=== PATIENT | male | born 1960 | race Asian ===

== ENCOUNTER 2016-12-13 07:04 | Day surgery (SDC) | payer OTHER ==
[2016-12-01 12:05] VITALS: BMI 25.2
[2016-12-13] MEDS ORDERED: BUPIVACAINE HCL/PF 0.5% (5MG/ML) 10 ML VIAL ONE ×2 (07:53→09:59)
[2016-12-13] MEDS ORDERED: BUPIVACAINE HCL 0.25% 125 MG/50 ML VIAL ONE (07:53)
[2016-12-13] MEDS ORDERED: LIDOCAINE HCL 1%, 10 MG/ML (20ML VIAL) ONE ×2 (07:53→09:59)
[2016-12-13] MEDS ORDERED: MIDAZOLAM HCL 2 MG/2 ML SINGLE DOSE VIAL ONE (08:41)
[2016-12-13] MEDS ORDERED: PROPOFOL 20 ML ONE ×2 (08:41→10:02)
[2016-12-13] MEDS ORDERED: ceFAZolin SODIUM 1 GM VIAL ONE (09:48)
[2016-12-13] MEDS ORDERED: ONDANSETRON 4 MG/2 ML VIAL ONE ×2 (09:53)
[2016-12-13] MEDS ORDERED: DEXAMETHASONE SOD PHOSPHATE 4 MG/1 ML VIAL ONE ×2 (09:53)
[2016-12-13] MEDS ORDERED: BUPIVACAINE HCL 0.5% 250 MG/50 ML VIAL NR ONE (09:55)
[2016-12-13] MEDS ORDERED: LIDOCAINE HCL 1% PRESERVATIVE FREE - 30ML VIAL IJ ONE (09:55)
[2016-12-13] MEDS ORDERED: KETOROLAC TROMETHAMINE 30 MG/1 ML VIAL ONE (10:43)
[2016-12-13] MEDS ORDERED: oxyCODONE HCL 5 MG TABLET ONE (11:23)
[2016-12-13 11:31] VITALS: PULSE 68
[2016-12-13 12:17] VITALS: BP 136/87; TEMP 97.8
--- NOTE | 2016-12-14 10:25 | OP ---
DATE OF OPERATION: 12/13/2016 PREOPERATIVE DIAGNOSIS: Bilateral inguinal hernia. POSTOPERATIVE DIAGNOSIS: Bilateral inguinal hernia. PROCEDURE: Bilateral open inguinal hernia repair with mesh and plug. SURGEON: Jacqueline Payne M.D. MOTION STUDY ANALYST: Jessy Dean ANESTHESIA: Local anesthesia. DESCRIPTION OF PROCEDURE: Patient was brought in the operating room with the groin prepped and draped. Intravenous antibiotics and IV sedation was given. Groin incisions were made obliquely in the lower abdominal crease bilaterally. External oblique aponeurosis was dissected, identified the superficial ring, which was opened, and care was taken avoiding the ilioinguinal nerve, and was isolated from the pubic tubercle, encircled with the Dirk, and both sides of direct hernia. Left side was found to be much bigger than the right side. There was no indirect sac seen in the spermatic cord structures. Two plugs and the meshes were used to close the hole in the deep inguinal ring bilaterally, and the posterior wall was repaired with the mesh using 2-0 Prolene. Pubis tubercle medially, conjoined tendon below, and the reflected part of the conjoined tendon above, reflected part of the ilioinguinal ligament below, and the mesh was brought around the spermatic cord structures to form a new ring, which was tucked underneath the external oblique aponeurosis. This was all done with 2-0 Prolene interrupted sutures, following which the external oblique was closed with 2-0 Vicryl, subcutaneous tissue and skin was closed and patient went to the recovery room. JACQUELINE PAYNE M.D. [id number]
== END 2016-12-13 12:35 | disposition home or self-care (01) ==
LOC: FASU 07:04
PROVIDERS: ATTEND Surgery Vascular Surgery
PROC: 0YUA0JZ Supplement Bilateral Inguinal Region with Synthetic Substitute, Open Approach (ICD-10-PCS; principal; 2016-12-13 09:00)
DX: K40.20 Bilateral inguinal hernia, without obstruction or gangrene, not specified as recurrent (principal)

== ENCOUNTER 2019-02-05 06:56 | Day surgery (SDC) | payer OTHER ==
[2019-02-02 12:15] VITALS: BMI 25.4
[2019-02-05 08:45] VITALS: TEMP 98
[2019-02-05 10:14] VITALS: BP 120/79; PULSE 73
--- NOTE | 2019-02-06 10:16 | PATH ---
Surgical Pathology Report Patient Name: ESPERANZA CRANDALL [facility]. Rec. #: [id number] /Age/Gender: 1960 (Age: 58) / M Account: [id number] Location: [facility]-ENDOSCOPY Taken: 02/05/2019 Received: 02/05/2019 Reported: 02/06/2019 Physicians: Lucien Loya M.D. Specimen(s) Received A: RECTAL POLYP B: DESCENDING COLON POLYP C: RIGHT COLON POLYP D: TRANSVERSE COLON POLYP Clinical History History of colon polyp, family history of colon cancer Postoperative diagnosis: Colon polyps Final Diagnosis A. RECTAL POLYP, BIOPSY: POLYPOID FRAGMENTS OF COLONIC MUCOSA WITH REACTIVE LYMPHOID AGGREGATE AND FOCAL EPITHELIAL HYPERPLASTIC CHANGE. B. DESCENDING COLON POLYP, BIOPSY: TUBULAR ADENOMA. C. RIGHT COLON POLYP, POLYPECTOMY: TUBULAR ADENOMA. D. TRANSVERSE COLON POLYP, BIOPSY: FRAGMENTS OF COLONIC MUCOSA WITH SURFACE HYPERPLASTIC CHANGE. Electronically Signed Delvis Hernandez M.D. Gross Description A. Received in formalin, labeled "rectal polyp biopsy" are 2 escalera, irregular portions of soft tissue averaging 0.3 to cm. in greatest dimension. The specimens are submitted in toto in one cassette. B. Received in formalin, labeled "descending colon polyp biopsy" are 7 escalera, irregular portions of soft tissue ranging from 0.1-0.4 cm. in greatest dimension. The specimens are submitted in toto in one cassette. C. Received in formalin, labeled "right colon polyp biopsy" is a escalera, irregular portion of soft tissue measuring 0.3 cm. in greatest dimension. The specimen is submitted in toto in one cassette. D. Received in formalin, labeled "transverse colon polyp biopsy" are 5 escalera, irregular portions of soft tissue ranging from 0.3-0.5 cm. in greatest dimension. The specimens are submitted in toto in one cassette. DL02/05/2019 saudi02/05/2019
== END 2019-02-05 09:45 | disposition home or self-care (01) ==
LOC: JASU-ENDO 06:56
PROVIDERS: ATTEND Internal Medicine Gastroenterology
PROC: 0DBK8ZX Excision of Ascending Colon, Via Natural or Artificial Opening Endoscopic, Diagnostic (ICD-10-PCS; 2019-02-05)
PROC: 0DBL8ZX Excision of Transverse Colon, Via Natural or Artificial Opening Endoscopic, Diagnostic (ICD-10-PCS; 2019-02-05)
PROC: 0DBM8ZX Excision of Descending Colon, Via Natural or Artificial Opening Endoscopic, Diagnostic (ICD-10-PCS; 2019-02-05)
PROC: 0D5P8ZZ Destruction of Rectum, Via Natural or Artificial Opening Endoscopic (ICD-10-PCS; principal; 2019-02-05 08:00)
DX: Z12.11 Encounter for screening for malignant neoplasm of colon (principal); Z86.010 Personal history of colon polyps; Z80.0 Family history of malignant neoplasm of digestive organs; K62.1 Rectal polyp; D12.2 Benign neoplasm of ascending colon; D12.4 Benign neoplasm of descending colon; D12.3 Benign neoplasm of transverse colon; K64.8 Other hemorrhoids
CPT/HCPCS: 88305-TC

== ENCOUNTER 2021-05-12 15:26 | Observation (INO) | payer OTHER ==
[2021-05-12] MEDS ORDERED: ACETAMINOPHEN 1000 MG/100 ML VIAL (NON FORMULARY) IVPB ONE (16:43)
[2021-05-12] MEDS ORDERED: ACETAMINOPHEN INJECTION 100 ML IVPB ONE (17:04)
[2021-05-12 17:09] LABS: BASO % 0.5 % (0-2.0); EOS % 0.8 % (0-4.5); HEMOGLOBIN 14.5 GM/dL (11.7-16.9); MCH 30.2 pg (25.7-33.7); MCHC 35.2 g/dl (32.0-35.9); MEAN CELL VOLUME 85.6 fl (80-96); MEAN PLT VOLUME 8.5 fl (7.5-11.1); MONO % 6.5 % (3.8-10.2); NEUT % 82.2 % (42.8-82.8); PLATELET COUNT 225 10^3/uL (134-434); RBC 4.79 M/mm3 (4.00-5.60); RDW 13.8 % (11.9-15.9); WHITE BLOOD COUNT 13.8 K/mm3 (4.0-10.0)
[2021-05-12 17:16] LABS: INR 1.09 (0.83-1.09); PROTHROMBIN TIME (PATIENT) 13.4 SEC (9.7-13.0)
[2021-05-12 17:18] LABS: ACTIVATED PTT 29.5 SECONDS (25.2-36.5)
[2021-05-12 17:30] LABS: CHLORIDE 105 mmol/L (98-107); SODIUM 138 mmol/L (136-145)
[2021-05-12 17:31] LABS: ALBUMIN 3.9 g/dl (3.4-5.0); ANION GAP 10 MMOL/L (8-16); BLOOD UREA NITROGEN 16.1 mg/dL (7-18); CALCIUM 9.2 mg/dL (8.5-10.1); CO2 23 mmol/L (21-32); GLUCOSE,RANDOM 95 mg/dL (74-106)
[2021-05-12 17:34] LABS: CREATININE 1.1 mg/dL (0.55-1.3); SGOT/AST 29 U/L (15-37); SGPT/ALT 38 U/L (13-61)
[2021-05-12 17:36] LABS: BILIRUBIN,TOTAL 0.5 mg/dL (0.2-1); TOT PROT 7.4 g/dl (6.4-8.2)
[2021-05-12 17:37] LABS: ALK PHOS 58 U/L (45-117)
[2021-05-12] MEDS ORDERED: ATORVASTATIN CA 80 MG TABLET (FP) PO ONE (18:39)
[2021-05-12] MEDS ORDERED: ASPIRIN 81 MG CHEWABLE TABLETS PO ONE (18:40)
[2021-05-12] MEDS ORDERED: ASPIRIN 81 MG CHEWABLE TABLETS ONE (19:44)
[2021-05-12] MEDS ORDERED: ATORVASTATIN CA 80 MG TABLET (FP) ONE (19:44)
[2021-05-12 21:09] LABS: CHOLESTEROL 129 mg/dL (50-200); TRIGLYCERIDES 457 mg/dL (0-150)
[2021-05-12 21:10] LABS: LDL CHOLESTEROL (ONLY SJRH) 64 mg/dL (5-100)
[2021-05-12 21:12] LABS: HDL CHOLESTEROL 39 mg/dL (40-60)
[2021-05-12] MEDS ORDERED: ACETAMINOPHEN 325 MG TABLET (FP) PO PRN (21:51)
[2021-05-12] MEDS ORDERED: SENNOSIDES 8.6MG TABLET (FP) PO PRN (21:51)
[2021-05-12] MEDS ORDERED: INSULIN (LEVEMIR) 100 UNITS/ML UNITS SQ SCH (22:00)
[2021-05-12 22:11] LABS: MAGNESIUM 1.7 mg/dL (1.8-2.4)
[2021-05-12 22:14] LABS: PHOSPHOROUS 4.3 mg/dL (2.5-4.9)
[2021-05-12] MEDS: DORZOLAMIDE 2% HCL OPHTHALMIC SOLUTION 10 ML BOTTLE OU SCH (22:23)
[2021-05-12] MEDS ORDERED: MAGNESIUM SULF 50% (8.12 MEQ/2 ML-1 GM VIAL) IVPB ONE (22:41)
[2021-05-12] MEDS: FENOFIBRIC ACID 45 MG CAP PO SCH (22:41)
[2021-05-13 00:17] VITALS: BMI 24.7
[2021-05-13 01:43] LABS: PH,URINE 5.5 (5.0-8.0); URINE APPEARANCE CLEAR; URINE BILIRUBIN NEGATIVE (NEGATIVE); URINE COLOR YELLOW; URINE GLUCOSE (UA) 2+ (NEGATIVE); URINE KETONE NEGATIVE (NEGATIVE); URINE LEUK ESTERASE NEGATIVE (NEGATIVE); URINE NITRITE NEGATIVE (NEGATIVE); URINE PROTEIN NEGATIVE (NEGATIVE); URINE UROBILINOGEN 0.2 mg/dL (0.2-1.0)
[2021-05-13 03:14] LABS: BASO % 0.8 % (0-2.0); HEMATOCRIT 40.3 % (35.4-49); HEMOGLOBIN 14.1 GM/dL (11.7-16.9); LYMPH % 27.8 % (8-40); MCHC 34.9 g/dl (32.0-35.9); MEAN CELL VOLUME 85.9 fl (80-96); MEAN PLT VOLUME 7.4 fl (7.5-11.1); MONO % 9.4 % (3.8-10.2); PLATELET COUNT 182 10^3/uL (134-434); RBC 4.69 M/mm3 (4.00-5.60); RDW 13.5 % (11.9-15.9); WHITE BLOOD COUNT 7.6 K/mm3 (4.0-10.0)
[2021-05-13 03:33] LABS: CHLORIDE 106 mmol/L (98-107); SODIUM 140 mmol/L (136-145)
[2021-05-13 03:35] LABS: ANION GAP 6 MMOL/L (8-16); CO2 27 mmol/L (21-32); GLUCOSE,RANDOM 97 mg/dL (74-106); MAGNESIUM 2.5 mg/dL (1.8-2.4)
[2021-05-13 03:38] LABS: CREATININE 0.9 mg/dL (0.55-1.3); PHOSPHOROUS 3.8 mg/dL (2.5-4.9)
[2021-05-13 03:54] LABS: CALCIUM 8.9 mg/dL (8.5-10.1)
[2021-05-13] MEDS: INSULIN SLIDING SCALE (NOVOLOG) 1 VIAL SQ SCH ×2 (06:27→12:24)
[2021-05-13] MEDS ORDERED: PT OWN MED DRAWER 7, Y5N ONE (09:19)
[2021-05-13] MEDS: FENOFIBRIC ACID 45 MG CAP PO SCH (09:31)
[2021-05-13] MEDS: DORZOLAMIDE 2% HCL OPHTHALMIC SOLUTION 10 ML BOTTLE OU SCH (09:37)
[2021-05-13] MEDS ORDERED: POLYETHYLENE GLYCOL (HEALTHYLAX) 3350 17 GM PACKET PO SCH (10:00)
[2021-05-13] MEDS ORDERED: LOSARTAN POTASSIUM 25 MG TABLET PO SCH (10:00)
[2021-05-13] MEDS ORDERED: CHOLECALCIFEROL (VIT D3) 1,000 UNIT (25 MCG) TABLET PO SCH (10:00)
[2021-05-13] MEDS ORDERED: ASPIRIN 81 MG CHEWABLE TABLETS PO SCH (10:00)
[2021-05-13] MEDS ORDERED: LOSARTAN POTASSIUM 50 MG TABLET PO SCH (10:00)
[2021-05-13 15:25] VITALS: BP 146/87; PULSE 71; TEMP 98.1
[2021-05-17] MEDS ORDERED: PATIENT'S OWN MEDICATION (NON-FORMULARY) (Dulaglutide [Trulicity] 0.75 MG/0.5 ML Pen.Injct SQ SCH (07:00)
== END 2021-05-13 16:26 | disposition home or self-care (01) ==
LOC: JER 15:26 → JERBED 18:10 → J4S 21:27
PROVIDERS: ADMIT Internal Medicine
PROC: 3E033NZ Introduction of Analgesics, Hypnotics, Sedatives into Peripheral Vein, Percutaneous Approach (ICD-10-PCS; principal; 2021-05-12)
PROC: 3E013VG Introduction of Insulin into Subcutaneous Tissue, Percutaneous Approach (ICD-10-PCS; 2021-05-12)
PROC: 3E033GC Introduction of Other Therapeutic Substance into Peripheral Vein, Percutaneous Approach (ICD-10-PCS; 2021-05-12)
DX: R07.9 Chest pain, unspecified (principal); E11.9 Type 2 diabetes mellitus without complications; E78.00 Pure hypercholesterolemia, unspecified; I10 Essential (primary) hypertension; I25.2 Old myocardial infarction; I20.0 Unstable angina; R61 Generalized hyperhidrosis; Z88.8 Allergy status to other drugs, medicaments and biological substances; Z79.4 Long term (current) use of insulin
CPT/HCPCS: 36415; 71045-TC-FY; 80048; 80053; 80061; 81003; 82550; 82962; 83036; 83721; 83735; 84100; 84443; 84484; 85025; 85610; 85730; 93005; 93010; 93306-TC; 96372; 96374; 96375; 99285-25; C9803; G0378; J0131; U0003; U0005

== ENCOUNTER 2022-05-04 04:28 | Day surgery (SDC) | payer OTHER ==
[2022-05-03 14:36] VITALS: BMI 23.6
[2022-05-04 08:50] VITALS: TEMP 98
[2022-05-04 09:26] VITALS: BP 110/65; PULSE 72; RESP 18
== END 2022-05-04 09:45 | disposition home or self-care (01) ==
LOC: JASU-ENDO 04:28
PROVIDERS: ATTEND Internal Medicine Gastroenterology
PROC: 0DBK8ZX Excision of Ascending Colon, Via Natural or Artificial Opening Endoscopic, Diagnostic (ICD-10-PCS; principal; 2022-05-04 08:00)
DX: Z12.11 Encounter for screening for malignant neoplasm of colon (principal); D12.2 Benign neoplasm of ascending colon; K64.8 Other hemorrhoids; Z86.010 Personal history of colon polyps; Z80.0 Family history of malignant neoplasm of digestive organs
CPT/HCPCS: 88305-TC